=== PATIENT | male | born 1975 | race Two or more races ===

== ENCOUNTER 2019-01-31 13:49 | Inpatient (IN) | payer OTHER ==
[~2019-01-31] VITALS: Ht 180.3 cm; Wt 99.0 kg
[2019-02-02 14:11] VITALS: BP 142/96
== END 2019-02-02 15:30 | disposition home or self-care (01) | DRG 392 ==
LOC: ED 16:12 → INTOOBSV 17:35 → EDIP 17:35 → 5SO 20:42 → OBSVTOIN 02-01 12:12 → DCLOUNGE 02-02 15:17
PROVIDERS: ADMIT Family Medicine; ATTEND Family Medicine
DX: R10.9 Unspecified abdominal pain (principal); F10.239 Alcohol dependence with withdrawal, unspecified; K86.1 Other chronic pancreatitis; E87.0 Hyperosmolality and hypernatremia; F17.210 Nicotine dependence, cigarettes, uncomplicated; F41.9 Anxiety disorder, unspecified; K76.0 Fatty (change of) liver, not elsewhere classified; G89.29 Other chronic pain; Z78.1 Physical restraint status; F32.9 Major depressive disorder, single episode, unspecified
CPT/HCPCS: 36415; 74176; 80053; 80307; 83036; 83690; 83735; 85025; 96374; 96375; 99285; G0378; J1650; J2405; J2270; J3475; J7030